=== PATIENT | male | born 1950 | race Caucasian/White ===

== ENCOUNTER → 2017-10-13 | Outpatient (CLI) | payer MEDICARE ==
[~2017-10-13] MED LIST: BACTROBAN OINT22 GM PO; SEPTRA DS 800 M1 TAB PO; VICODIN 500 MG-1 TAB PO
== END | disposition home or self-care (01) ==
LOC: RAD 20:02
DX: M19.011 Primary osteoarthritis, right shoulder (principal); Z91.81 History of falling

== ENCOUNTER → 2019-07-07 | Outpatient (CLI) | payer OTHER, MEDICARE | END | disposition home or self-care (01) | LOC: RAD 15:12 | DX: M17.12 Unilateral primary osteoarthritis, left knee (principal); M16.12 Unilateral primary osteoarthritis, left hip; M25.852 Other specified joint disorders, left hip; M85.862 Other specified disorders of bone density and structure, left lower leg; Z98.890 Other specified postprocedural states ==

== ENCOUNTER 2024-10-07 19:25 | Emergency (ER) | payer OTHER ==
[~2024-10-07] VITALS: Ht 180.3 cm; Wt 77.1 kg
[2024-10-07] MEDS ORDERED: Lidocaine Hydrochloride 5 ML AMP SC ONE (19:50)
[2024-10-07] MEDS ORDERED: Tdap Vaccine 0.5 ML SYR (Adult Vaccine) IM ONE (20:20)
[2024-10-07] MEDS ORDERED: VIBRAMYCIN100 MG PO (20:22)
== END 2024-10-07 20:38 | disposition home or self-care (01) ==
LOC: ED 19:25
DX: S60.454A Superficial foreign body of right ring finger, initial encounter (principal); Z79.899 Other long term (current) drug therapy; Z98.890 Other specified postprocedural states; W45.8XXA Other foreign body or object entering through skin, initial encounter; Y93.89 Activity, other specified; Y92.89 Other specified places as the place of occurrence of the external cause; Y99.8 Other external cause status